=== PATIENT | female | born 1940 | race Caucasian/White ===

== ENCOUNTER 2018-06-25 16:17 | Inpatient (IN) ==
--- NOTE | 2018-06-25 20:41 | Internal Med History&Physical ---
<Jordin Patterson Bo - Last Filed: 06/25/18 23:07> Date of Encounter: 06/25/18 Time of Encounter: 20:43 Internal Medicine - H&P: HPI Chief complaint: Bradycardia Admitted From: Hospital to Hospital Transfer Plans for Post Hospital Care: Home History of present illness: Ms. Dunaway is a 77 year old female with a past medical history of COPD, diabetes mellitus, gastroesophageal reflux disease, hyperlipidemia, hypertension, pulmonary embolism, tobacco use, thoracic aortic aneurysm, hypothyroidism. Within the last couple months when taking her blood pressure at home she has noticed that her heart rate has been in the 40s which is below her normal in the 50s. She brought this to the attention of her [employer] operator who recommended her be fitted with a Holter monitor. She was at [facility] today to be placed with a Holter monitor and to receive a CAT scan to monitor her known thoracic aortic aneurysm when she was found to have a heart rate in the 30s. It was recommended that she be transferred to [facility] to follow-up with cardiology in the morning in anticipation of a possible pacemaker. During the last couple months of new onset bradycardia and today she denies any symptoms including chest pain, shortness of breath, lightheadedness or syncope, fatigue. She states that if she had not have checked she would not have known her heart rate was low. She also denies any other review of systems other than a slight headache. She admits to being a pack per day smoker but denies other contributory social history. Other pertinent medical and surgical history includes regular yearly echocardiogram and anterior cervical decompression and fusion performed last year. Past Med Surg Social Fam HX - Past Medical History Medical history: arthritis, COPD, diabetes, GERD, hyperlipidemia, hypertension, kidney stones, pulmonary embolus, other Additional medical history: DELIA, home 02, thyroid disorder, cataracts, smoker Psychiatric history: no psych history - Past Surgical History Surgical History: cholecystectomy, other Additional surgical history: ganglion cysts, bladder surgery, , T & A, tubal, cataracts - Social History Smoking Status: Current every day smoker Smokeless Tobacco Status: No Alcohol use: none, occasionally Drug use: none - Family History Mother Hx Family Cardiac Disorders: Yes (angina) Father Hx Family Cardiac Disorders: No Internal Medicine - H&P: Meds Atorvastatin [Lipitor] 40 mg PO HS 07/13/16 [History] Bumetanide 2 mg PO DAILY PRN 07/13/16 [History] Fluticasone/Salmeterol [Advair 250-50 Diskus] 1 each IH DAILY 07/13/16 [History] Insulin Lispro Protamin/Lispro [Humalog Mix 75-25 Kwikpen] 105 unit SQ DAILY [History] Metolazone [Zaroxolyn] 5 mg PO DAILY PRN 07/13/16 [History] Nitroglycerin [Nitrostat] 0.4 mg SL Q5M PRN 07/13/16 [History] Allopurinol [Zyloprim 100 MG] 200 mg PO DAILY 09/25/17 [History] Clobetasol Propionate 0.05% [Temovate] 1 appl TP BID 09/25/17 [History] Cyanocobalamin (Vitamin B-12) [Vitamin B12] 1,000 mcg PO DAILY 09/25/17 [History ] Magnesium 250 mg PO DAILY 09/25/17 [History] Ropinirole HCl [Requip] 5 mg PO HS 09/25/17 [History] metFORMIN [Glucophage] 1,000 mg PO BIDWM 09/25/17 [History] OxyCODONE Immed Rel [Roxicodone 5 MG] 5 mg PO Q4HR PRN #30 tablet 09/26/17 [Rx] Donepezil [Aricept] 5 mg PO DAILY 06/25/18 [History] Gabapentin [Neurontin] 300 mg PO HS 06/25/18 [History] HYDROcodone/Acet 5/325 mg [Kenly 5-325 mg] 1 tab PO TID 06/25/18 [History] Levothyroxine [Synthroid] 150 mcg PO DAILY 06/25/18 [History] Lisinopril [Zestril] 10 mg PO DAILY 06/25/18 [History] Omeprazole [PriLOSEC] 40 mg PO DAILY 06/25/18 [History] hydrALAZINE [HydrALAZINE] 25 mg PO BID 06/25/18 [History] 3 Allergy/AdvReac Type Severity Reaction Status Date / Time cephalexin Allergy Rash Verified 06/25/18 14:51 Penicillins Allergy Anaphylaxis Verified 06/25/18 14:51 steroids Allergy red, Uncoded 08/28/17 10:31 swelling - legs All Systems PM: A 10-system review of systems was performed and is negative for pertinent findings except as documented above in the HPI. - Constitutional Constitutional: no chills, no fatigue, no fever(s), no falls, no weakness - EENT Eyes: no blurry vision - Cardiovascular Cardiovascular ROS IM: no chest pain, no diaphoresis, no dyspnea, no dyspnea on exertion, no irregular heart rhythm, no palpitations, no syncope - Respiratory Respiratory: no cough, no dyspnea - Gastrointestinal Gastrointestinal: no abdominal pain, no vomiting - Musculoskeletal Musculoskeletal ROS IM: no numbness, no tingling - Integumentary Integumentary IM: no sores, no unusual bruising - Neurological Neurological ROS: no abnormal speech, no focal weakness - Endocrine Endocrine IM: no excessive sweating, no fatigue - Constitutional Vitals: Temp Pulse Resp BP Pulse Ox 99 F 42 18 147/64 98 06/25/18 18:54 06/25/18 18:54 06/25/18 18:54 06/25/18 18:54 06/25/18 18:54 Exam: Patient in no acute distress, alert and oriented 3 Cranial nerves II through XII intact Heart in a bradycardic rate and regular rhythm, no murmur or gallop auscultated Lungs sounds clear to auscultation bilaterally although course in bilateral lower lung bui Abdomen obese and soft and nontender with normal bowel sounds Bilateral lower extremities 1+ pitting edematous with nonspecific patterns of erythema Skin warm and dry - Assessment and plan (1) Sinus bradycardia Current Visit: Yes Status: Acute Assessment and plan: Patient states her baseline heart rate is in the 50s however in the last couple months she has had heart rates in the 40s Today at [place] she was found to have a heart rate in the 30s and so she was transferred to [facility] She has been asymptomatic over the last couple months and today, denying chest pain or shortness of breath or palpitations or lightheadedness EKG today showed sinus bradycardia with a right bundle branch block and left anterior fascicular block, possible atrial fibrillation The sinus bradycardia is new but both blocks were present on last EKG from 2015 Cardiovascular history includes a myocardial infarction greater than 10 years ago, ascending thoracic aortic aneurysm stable at 4 cm, last echo in December of this year showed ejection fraction of 60% and mild diastolic dysfunction Troponin today was less than 0.03, patient is hemodynamically stable Plan Consult to cardiology for pacemaker discussion Continuous cardiac monitoring NPO after midnight Hold any rate lowering medication Continue to monitor (2) Hyperkalemia Current Visit: Yes Status: Acute Assessment and plan: Patient's last potassium was 5.2 [place] She received 1 dose of Kayexalate before transfer Patient is asymptomatic and hemodynamically stable Repeat BMP in the a.m. 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: with snf use Diabetes mellitus complication status: without complication Qualified Code(s): E11.9 - Type 2 diabetes mellitus without complications; Z79.4 - detention (current) use of insulin (4) Hypertension Current Visit: Yes Status: Chronic Assessment and plan: Patient with history of chronic hypertension, currently stable Resume home medications metolazone, lisinopril, bumetanide Qualifiers: Hypertension type: essential hypertension Qualified Code(s): I10 - Essential (primary) hypertension (5) Hypothyroid Current Visit: Yes Status: Chronic Assessment and plan: Patient with chronic history of hypothyroidism Resume home levothyroxine Qualifiers: Hypothyroidism type: unspecified Qualified Code(s): E03.9 - Hypothyroidism , unspecified (6) COPD (chronic obstructive pulmonary disease) Current Visit: Yes Status: Chronic Assessment and plan: Patient has history of COPD managed on home medications Not currently in exacerbation Resume home medication of Advair Qualifiers: COPD type: unspecified COPD Qualified Code(s): J44.9 - Chronic obstructive pulmonary disease, unspecified (7) Chronic kidney disease Current Visit: Yes Status: Chronic Assessment and plan: Patient's creatinine at admission 1.42, paced on previous labs is pierced to be her baseline Patient is stage III chronic kidney disease based on glomerular filtration rate Currently hemodynamically stable we will continue to monitor Avoid nephrotoxic agents and renally dose medications Qualifiers: Chronic kidney disease stage: stage 3 (moderate) Qualified Code(s): N18.3 - Chronic kidney disease, stage 3 (moderate) (8) DVT prophylaxis Current Visit: Yes Status: Acute Assessment and plan: Subcutaneous heparin 5000 units every 8 hours - Time Spent With Patient Total time spent is greater than 50% in coordination of care (as documented) at patient's floor/unit and/or counseling patient: Rose Marie Santoyo - Last Filed: 06/25/18 23:11> Date of Encounter: 06/25/18 Internal Medicine - H&P: HPI History of present illness: Ms. Dunaway is a 77 year old female All Systems PM: A 10-system review of systems was performed and is negative for pertinent findings except as documented above in the HPI. - Constitutional Vitals: Temp Pulse Resp BP Pulse Ox 99 F 42 18 147/64 98 06/25/18 18:54 06/25/18 18:54 06/25/18 18:54 06/25/18 18:54 06/25/18 18:54 - Assessment and plan (1) Sinus bradycardia Current Visit: Yes Status: Acute (2) Hyperkalemia Current Visit: Yes Status: Acute (3) Diabetes Current Visit: Yes Status: Chronic Qualifiers: Diabetes mellitus type: type 2 Diabetes mellitus snf insulin use: with snf use Diabetes mellitus complication status: without complication Qualified Code(s): E11.9 - Type 2 diabetes mellitus without complications; Z79.4 - medical records manager (current) use of insulin (4) Hypertension Current Visit: Yes Status: Chronic Qualifiers: Hypertension type: essential hypertension Qualified Code(s): I10 - Essential (primary) hypertension (5) Hypothyroid Current Visit: Yes Status: Chronic Qualifiers: Hypothyroidism type: unspecified Qualified Code(s): E03.9 - Hypothyroidism , unspecified (6) COPD (chronic obstructive pulmonary disease) Current Visit: Yes Status: Chronic Qualifiers: COPD type: unspecified COPD Qualified Code(s): J44.9 - Chronic obstructive pulmonary disease, unspecified (7) Chronic kidney disease Current Visit: Yes Status: Chronic Qualifiers: Chronic kidney disease stage: stage 3 (moderate) Qualified Code(s): N18.3 - Chronic kidney disease, stage 3 (moderate) (8) DVT prophylaxis Current Visit: Yes Status: Acute - Time Spent With Patient Total time spent is greater than 50% in coordination of care (as documented) at patient's floor/unit and/or counseling patient: - Attending Attestation Sona Dunaway is a 77 year old woman with a plethora of comorbidities including diabetes and hypertension who are recent is noted to be bradycardic into the 40s over the last 2 months as per her setting that usually her heart rate is in the mid 50s. He states she has gone as low as the high 30s. She saw a [employer] operator who recommended Holter monitoring which was being placed today however given the DIP and her heart rate to the 30s was recommended she be transferred here for further evaluation. My assessment she is sitting comfortably out of bed to chair stating that she has no complaints; she denies chest pain, dyspnea, diaphoresis, headache or lightheadedness/dizziness. She says that she has been completely asymptomatic ever since this started and has no complaints. So states she does not want aggressive interventions done for her as she is currently comfortable as she is right now. Physical exam remarkable for well-developed woman in NAD, no rubs or murmur or gallop rhythm on auscultation, lungs clear on auscultation, right leg circumferentially more edematous than the left but no tenderness on palpation. We shall keep the patient on telemetry monitoring and follow-up with cardiology for consultation in the morning. All her medications were reviewed and to ensure that she is not on any AV dayna blocking agents. Old records reviewed showed that she had a stress test done less than a year ago which was unremarkable and a TTE done in December this year which also was grossly unremarkable.
[2018-06-25] MEDS ORDERED: metOLazone 5 MG TABLET PO PRN (21:17)
[2018-06-25] MEDS ORDERED: NON-FORMULARY MEDICATION 1 EACH EACH (Ropinirole Hcl [Requip] 4 MG) PO PRN (21:17)
[2018-06-25] MEDS ORDERED: Bumetanide 1 MG TABLET PO PRN (21:17)
[2018-06-25] MEDS ORDERED: Nitroglycerin 0.4 MG TAB.SUBL SL PRN (21:17)
[2018-06-25] MEDS ORDERED: Naloxone 0.4 MG/ML INJ IVP PRN (21:22)
[2018-06-25] MEDS ORDERED: D5% in Water 1,000 ML IVC PRN (21:24)
[2018-06-25] MEDS ORDERED: Dextrose Gel 15 GM/37.5 ML TUBE PO PRN ×2 (21:24)
[2018-06-25] MEDS ORDERED: *HR* Dextrose 50 % in Water (Syg) 50 ML SYRINGE IVP PRN (21:24)
[2018-06-25] MEDS ORDERED: rOPINIRole 1 MG TABLET PO SCH (21:30)
[2018-06-25] MEDS: *HR* Heparin 5,000 UNIT/ML VIAL SQ SCH (22:19)
[2018-06-26] MEDS: Acetaminophen 325 MG TABLET PO PRN ×3 (00:06→17:13)
[2018-06-26] MEDS: Insulin LISPRO 300 UNITS/3 ML VIAL SQ SCH ×3 (00:09→16:33)
[2018-06-26 04:59] LABS: Basophils % 0.2 %; Eosinophils # 0.1 K/mcL (0.0-0.6); Eosinophils % 2.8 %; Hematocrit 32.4 % (35.3-44.9); Hemoglobin 9.9 g/dL (11.5-15.4); Immature Granulocytes % 0.2 % (0-4); Lymphocytes % 42.3 %; Mean Corpuscular HGB Conc 30.6 g/dL (31.6-35.5); Mean Corpuscular Hemoglobin 28.4 pg (28.0-33.3); Mean Corpuscular Volume 93.1 fL (83.0-100.0); Mean Platelet Volume 10.2 fL (9.4-12.4); Monocytes # 0.3 K/mcL (0.0-1.3); Monocytes % 6.3 %; Neutrophils # 2.2 K/mcL (1.6-8.9); Platelet Count 137 K/mcL (140-400); Red Blood Count 3.48 M/mcL (3.82-4.97); Red Cell Distribution Width 15.8 % (11.5-14.5); Segmented Neutrophils % 48.2 %
[2018-06-26 05:14] LABS: Calcium 9.1 mg/dL (8.6-10.3); Potassium 5.5 mEq/L (3.5-5.1)
[2018-06-26] MEDS: *HR* Heparin 5,000 UNIT/ML VIAL SQ SCH ×3 (06:36→23:17)
[2018-06-26] MEDS: Budesonide/Formoterol 80/4.5 MDI IH SCH (08:00)
--- NOTE | 2018-06-26 10:27 | Cardiology Consult Note ---
<Kade Martinez Diogenes - Last Filed: 06/26/18 12:07> Date of Encounter: 06/26/18 Time of Encounter: 10:23 Assessment and Plan (1) Bradycardia Current Visit: Yes Status: Acute Asymptomatic. Only knows she has been bradycardic due to seeing HR when she checks BP. Reports historically HR in the 50s, but has recently noticed it in the 30s-40s intermittently. Intermittent junctional rhythm noted. Denies chest pain, dyspnea, dizziness, lightheadedness or fatigue. Not on any AV dayna blockers. K is 5.5---recommend correcting per primary team. Mag and TSH WNL. Pharmacologic nuclear stress test 08/2017 negative for ischemia or infarct. Limited TTE LVEF 55-60%. Normal right ventricular structure and function. Normal left atrial size. Moderately calcified aortic valve leaflets. Moderately calcified mitral valve leaflets. Continue to monitor HR and repeat ECG once potassium is corrected. Avoid AV dayna blockers. If no improvement in HR once K is corrected, will consider EP consult. (2) Hyperkalemia Current Visit: Yes Status: Acute K 5.5---recommend correction per primary team, as could be contributing to bradycardia. Discussion w patient/family: The assessment and plan as outlined above was discussed with the patient and/or family members who expressed understanding and agreement. All questions were answered. Thank you for involving us in the care of your patient. Please call with any questions. I will discuss all the above with Dr. Villegas and make changes as necessary. History of Present Illness Consult date: 06/26/18 Requesting physician: Rose Marie Melissa Consult reason: Bradycardia History of present illness: Ms. Dunaway is a 77 year old female with PMH of COPD, diabetes mellitus, GERD, HLD , HTN pulmonary embolism, tobacco use, thoracic aortic aneurysm, hypothyroidism. Within the last couple months when taking her blood pressure she has noticed that her heart rate has been in the 40s which is below her normal in the 50s. She brought this to the attention of her ob/gyn doctor who recommended a Holter monitor. She was at [facility] yesterday to have her Holter monitor applied and to receive a CT scan to monitor her known thoracic aortic aneurysm when she was found to have a heart rate in the 30s. It was recommended that she be transferred to [facility] for cardiology consult and to be evaluated for possible pacemaker. During the last couple months of new onset bradycardia and today she denies any symptoms. She denies fatigue, chest pain, shortness of breath, lightheadedness or syncope. She states that if she had not have checked she would not have known her heart rate was low. She also denies any other review of systems other than a slight headache. She admits to being a pack per day smoker but denies other contributory social history. HR currently 30s at bedside, appears junctional. K 5.5. Recent TSH WNL. Limited TTE obtained. EF remains preserved. Prior CV testing: TTE 01/06/18: LVEF 60%. Normal LV chamber size, wall thickness and function. Mild left ventricular diastolic dysfunction. Normal right ventricular structure and function. Grossly, mildly calcified aortic valve. The number of leaflets cannot be determined. Mild aortic regurgitation. Mild aortic sclerosis. Mean gradient 11 mmHg. Borderline mild pulmonary hypertension. Estimated RVSP 36 mmHg. Mildly dilated aortic root measuring 3.9 cm. Nuclear stress test 09/04/17: Perfusion imaging negative for ischemia or infarct. Gated EF >70%. Past Med Surg Social Fam HX - Past Medical History Medical history: arthritis, COPD, diabetes, GERD, hyperlipidemia, hypertension, kidney stones, pulmonary embolus, other Additional medical history: DELIA, home 02, thyroid disorder, cataracts, smoker Psychiatric history: no psych history - Past Surgical History Surgical History: cholecystectomy, other Additional surgical history: ganglion cysts, bladder surgery, , T & A, tubal, cataracts - Social History Smoking Status: Current every day smoker Smokeless Tobacco Status: No Alcohol use: none, occasionally Drug use: none - Family History Mother Living Status: Age at : 77 Hx Family Cardiac Disorders: Yes (angina) Hx Family Endocrine Disorder: Yes Father Living Status: Age at : 46 Cause of : acute alcoholism Hx Family Cardiac Disorders: No Medications and Allergies Atorvastatin [Lipitor] 40 mg PO HS 07/13/16 [History] Bumetanide 2 mg PO DAILY PRN 07/13/16 [History] Fluticasone/Salmeterol [Advair 250-50 Diskus] 1 each IH DAILY 07/13/16 [History] Insulin Lispro Protamin/Lispro [Humalog Mix 75-25 Kwikpen] 105 unit SQ DAILY [History] Metolazone [Zaroxolyn] 5 mg PO DAILY PRN 07/13/16 [History] Nitroglycerin [Nitrostat] 0.4 mg SL Q5M PRN 07/13/16 [History] Allopurinol [Zyloprim 100 MG] 200 mg PO DAILY 09/25/17 [History] Clobetasol Propionate 0.05% [Temovate] 1 appl TP BID 09/25/17 [History] Cyanocobalamin (Vitamin B-12) [Vitamin B12] 1,000 mcg PO DAILY 09/25/17 [History ] Magnesium 250 mg PO DAILY 09/25/17 [History] Ropinirole HCl [Requip] 5 mg PO HS 09/25/17 [History] metFORMIN [Glucophage] 1,000 mg PO BIDWM 09/25/17 [History] OxyCODONE Immed Rel [Roxicodone 5 MG] 5 mg PO Q4HR PRN #30 tablet 09/26/17 [Rx] Donepezil [Aricept] 5 mg PO DAILY 06/25/18 [History] Gabapentin [Neurontin] 300 mg PO HS 06/25/18 [History] HYDROcodone/Acet 5/325 mg [[place] 5-325 mg] 1 tab PO TID 06/25/18 [History] Levothyroxine [Synthroid] 150 mcg PO DAILY 06/25/18 [History] Lisinopril [Zestril] 10 mg PO DAILY 06/25/18 [History] Omeprazole [PriLOSEC] 40 mg PO DAILY 06/25/18 [History] hydrALAZINE [HydrALAZINE] 25 mg PO BID 06/25/18 [History] 3 Allergy/AdvReac Type Severity Reaction Status Date / Time cephalexin Allergy Rash Verified 06/25/18 14:51 Penicillins Allergy Anaphylaxis Verified 06/25/18 14:51 steroids Allergy red, Uncoded 08/28/17 10:31 swelling - legs All Systems Review: The remainder of the systems were reviewed and are negative - Cardiovascular Cardiovascular: as per HPI Physical Examination Vital Signs, Last 4 Hours Temp Pulse Resp BP Pulse Ox 06/26/18 06:59 98.0 F 40 18 155/48 96 Vital Signs Temp Pulse Resp BP Pulse Ox 06/26/18 06:59 98.0 F 40 18 155/48 96 06/26/18 05:14 97.7 F 41 18 173/54 97 06/25/18 23:45 97.4 F L 40 18 134/51 95 06/25/18 18:54 99 F 42 18 147/64 98 Intake and Output 06/25/18 06/26/18 06/26/18 23:59 07:59 15:59 Intake Total 100 / 100 0 / 0 Output Total 200 / 200 Balance -100 / -100 0 / 0 Intake: Oral 100 / 100 0 / 0 Output: Urine 200 / 200 Other: # Voids 0 0 Weight 111.5 kg Blood Glucose* 168 187 154 Vital Signs Temp Pulse Resp BP Pulse Ox 06/26/18 11:33 98.3 F 41 18 155/85 96 06/26/18 06:59 98.0 F 40 18 155/48 96 06/26/18 05:14 97.7 F 41 18 173/54 97 06/25/18 23:45 97.4 F L 40 18 134/51 95 06/25/18 18:54 99 F 42 18 147/64 98 Intake and Output 06/25/18 06/26/18 06/26/18 23:59 07:59 15:59 Intake Total 100 / 100 0 / 0 Output Total 200 / 200 Balance -100 / -100 0 / 0 Intake: Oral 100 / 100 0 / 0 Output: Urine 200 / 200 Other: # Voids 0 0 Weight 111.5 kg Blood Glucose* 168 187 146 General: Conversant, No Apparent Distress HEENT: Atraumatic, Normocephaly, Mucus Membranes Moist Neck: No JVD, Normal carotid pulses Cardiac: Other (irregular) Lungs: Other (diminished) Neuro: Alert and responsive, No focal deficits noted Abdomen: Soft, Non-Tender Skin: No rashes noted on visualized skin Musculoskeletal: No Chest Wall Tenderness Extremities: No Clubbing, No Cyanosis, Other (mild LE edema) Results 06/26/18 04:01 06/26/18 04:01 Lab Results 06/26/18 06/26/18 04:01 04:01 WBC 4.6 Hgb 9.9 L Hct 32.4 L Plt Count 137 L Sodium 135 L Potassium 5.5 H Chloride 109 H Carbon Dioxide 21 L BUN 27 H Creatinine 1.48 H Glucose 181 H Calcium 9.1 Short CBC 06/26/18 Range/Units 04:01 WBC 4.6 (4.3-11.1) K/mcL Hgb 9.9 L (11.5-15.4) g/dL Hct 32.4 L (35.3-44.9) % Plt Count 137 L (140-400) K/mcL Neutrophils # 2.2 (1.6-8.9) K/mcL BMP 06/26/18 Range/Units 04:01 Sodium 135 L (136-145) mEq/L Potassium 5.5 H (3.5-5.1) mEq/L Chloride 109 H (98-107) mEq/L Carbon Dioxide 21 L (23-29) mEq/L BUN 27 H (8-23) mg/dL Creatinine 1.48 H (0.60-1.20) mg/dL Glucose 181 H (70-105) mg/dL Calcium 9.1 (8.6-10.3) mg/dL Impressions Echocardiogram Limited Views 06/26/18 10:22 Impressions: LVEF 55-60%. Normal right ventricular structure and function. Normal left atrial size. Moderately calcified aortic valve leaflets. Moderately calcified mitral valve leaflets. Left Ventricular Wall Motion: Rest Echo Findings All wall segments showed normal motion. Findings: Study Quality * Limited exam to evaluate LV function. ECG Findings * Sinus bradycardia. Left Ventricle * LVEF 55-60%. Right Ventricle * Normal right ventricular structure and function. Left Atrium * Normal left atrial size. Right Atrium * Normal right atrial size. Interatrial Septum * No evidence of PFO by color Doppler. Aortic Valve * Moderately calcified aortic valve leaflets. * Aortic valve not well visualized. * Aortic leaflets not well visualized Mitral Valve * Moderately calcified mitral valve leaflets. * Mildly thickened mitral valve leaflets. Tricuspid Valve * Normal tricuspid valve structure. Pericardium * The pericardium appears normal. IVC * Normal IVC dimensions and inspiratory collapse. Pulmonary Artery * Normal visualized portions of the main pulmonary artery. Active Medications Acetaminophen (Tylenol) 650 mg PO Q6HR PRN PRN Reason: Mild Pain/Fever Stop: 12/25/18 21:23 Last Admin: 06/26/18 00:06 Dose: 650 mg Allopurinol (Zyloprim) 200 mg PO DAILY [facility] Stop: 12/26/18 09:01 Last Admin: 06/26/18 11:34 Dose: Not Given Atorvastatin Calcium (Lipitor) 40 mg PO DAILY [facility] Stop: 12/26/18 11:16 Budesonide/Formoterol Fumarate (Symbicort) 2 puff IH DAILYR [facility] Stop: 12/26/18 10:01 Last Admin: 06/26/18 08:00 Dose: Not Given Clobetasol Propionate (Temovate 0.05%) 1 appl TP BID [facility] Stop: 12/26/18 09:01 Last Admin: 06/26/18 11:34 Dose: Not Given Dextrose/Water (Dextrose 50% (Syg)) 25 ml IVP AD PRN PRN Reason: Hypoglycemia Stop: 12/25/18 21:25 Glucagon (Glucagen) 1 mg IM ONCE PRN PRN Reason: Hypoglycemia Stop: 12/25/18 21:25 Glucose (Gluctose) 15 gm PO ONCE PRN PRN Reason: Hypoglycemia Stop: 12/25/18 21:25 Glucose (Gluctose) 30 gm PO ONCE PRN PRN Reason: Hypoglycemia Stop: 12/25/18 21:25 Heparin Sodium (Porcine) (Heparin) 5,000 unit SQ Q8HCO [facility] Stop: 12/25/18 22:01 Last Admin: 06/26/18 06:36 Dose: Not Given Dextrose (Dextrose 5%) 1,000 mls @ 100 mls/hr IVC .Q10H PRN PRN Reason: HYPOGLYCEMIA Stop: 12/25/18 21:25 Insulin Human Lispro (Humalog) 0 units SQ Q6HR [facility] PRN Reason: Protocol Stop: 12/26/18 00:01 Last Admin: 06/26/18 06:35 Dose: 4 units Levothyroxine Sodium (Synthroid) 125 mcg PO 0630 [facility] Stop: 12/26/18 06:31 Last Admin: 06/26/18 06:34 Dose: 125 mcg Lisinopril (Zestril) 2.5 mg PO DAILY [facility] Stop: 12/26/18 09:01 Last Admin: 06/26/18 11:34 Dose: Not Given Omeprazole (Prilosec) 40 mg PO Q48H [facility] Stop: 12/25/18 21:31 Last Admin: 06/25/18 22:17 Dose: 40 mg Ropinirole HCl (Requip) 5 mg PO HS [facility] Stop: 12/25/18 21:31 Last Admin: 06/25/18 22:18 Dose: 5 mg - Imaging and Cardiology Stress Test: report reviewed Echo: report reviewed - EKG Interpretation EKG results cardiology: personally reviewed (Junctional, HR 37), other (12 hr tele AVG HR 46, sinus sreedhar and intermittent junctional rhythm) Consult Discharge Plan - Plan Referrals: Marlene Mcneil MD [Non-Partnered Physician] - <Yg Villegas - Last Filed: 06/26/18 16:53> Date of Encounter: 06/26/18 - Attending Attestation Patient was seen and evaluated independently by me. Findings, assessment and plan were discussed at length with patient, questions answered. Agree with nurse practitioner's documentation. Addition as follows, 77 yoCF ho baseline S sreedhar 50s, CKD, HTN, DM, COPD. Found in S sreedhar 30s before Holter fitting. Asymptomatic from CV stand of point. VSS, CTA, no M/G/R, 1+ B/L LE edema. ECG-Tele: sinus sreedhar 40s+/- K 5s with Cr close to baseline. Resumed lisinopril months ago with uptitration several wks ago. No evidence of RTA or rhabdo or other causes of hyperkalemia. A: Profound asymptomatic sinus bradycardia, hyperkalemia P: - correct hyperkalemia then repeat ECG - d/c lisinopril, start amlodipine - if HR improves with K correction and no pause or AVB on tele, f/u cardiology clinic. Yg Villegas MD, PhD Assessment and Plan Discussion w patient/family: The assessment and plan as outlined above was discussed with the patient and/or family members who expressed understanding and agreement. All questions were answered. Thank you for involving us in the care of your patient. Please call with any questions. History of Present Illness History of present illness: Ms. Dunaway is a 77 year old female All Systems Review: The remainder of the systems were reviewed and are negative Physical Examination Vital Signs, Last 4 Hours Temp Pulse Resp BP Pulse Ox 06/26/18 15:43 98.4 F 46 17 139/49 97 Results 06/26/18 04:01 06/26/18 11:15 Lab Results 06/26/18 06/26/18 06/26/18 04:01 04:01 11:15 WBC 4.6 Hgb 9.9 L Hct 32.4 L Plt Count 137 L Sodium 135 L 139 Potassium 5.5 H 5.5 H Chloride 109 H 110 H Carbon Dioxide 21 L 22 L BUN 27 H Creatinine 1.48 H Glucose 181 H Calcium 9.1 Magnesium 1.7
[2018-06-26] MEDS: CLOBETASOL PROPIONATE 15 GM TUBE TP SCH ×2 (11:34→23:17)
[2018-06-26 12:31] LABS: Magnesium 1.7 mg/dL (1.6-2.6); Potassium 5.5 mEq/L (3.5-5.1)
[2018-06-26] MEDS ORDERED: Insulin Human Regular 10 UNIT in 0.9 % Sodium Chloride 10 ML IV ONE (14:05)
[2018-06-26] MEDS ORDERED: *HR* Dextrose 50 % in Water (Syg) 50 ML SYRINGE IVP ONE (14:06)
[2018-06-26] MEDS ORDERED: amLODIPine 5 MG TABLET PO SCH (18:00)
[2018-06-26] MEDS ORDERED: rOPINIRole 1 MG TABLET PO SCH (18:00)
[2018-06-26] MEDS ORDERED: Insulin LISPRO 300 UNITS/3 ML VIAL SQ SCH (22:00)
--- NOTE | 2018-06-26 22:03 | Internal Med Progress Note ---
Hospitalist Progress Note - Encounter Date of Encounter: 06/26/18 Time of Encounter: 11:00 - Subjective Interval History: SUBJECTIVE: The patient feels good. Denies chest pain. Denies difficulty breathing. Denies dizziness/lightheadedness; resting and walking. OBJECTIVE: Skin: Free of rash and discoloration. ENMT: Oral/pharyngeal mucosa is normal in appearance. Eyes: Sclera is white. There is no discharge from eyes. Respiratory: Normal breath sounds; no crackles or wheezes. CV: Heart is regular; no gallop or murmur. GI: Abdomen is soft and not tender. There is no palpable mass or visceromegaly. Neuro: There is no focal deficits. Her potassium from today was 5.5 and 5.5. Creatinine is 1.48 with a GFR of 34. Sodium is 139. Magnesium is 1.7. Echocardiogram shows normal findings. Telemetry shows sinus bradycardia with occasionally seen junctional rhythm. Her heart rate is about 42. ASSESSMENT AND PLAN: Sinus bradycardia. Asymptomatic. We will try to correct her mild hyperkalemia. She got the 50% glucose and IV insulin. We will repeat her BMP in the morning. We appreciate help from cardiology. Type 2 diabetes mellitus. Seems to be under control. She was on metformin at home. Currently she gets when necessary Humalog. Hypertensive renal disease with CKD 3. She is on lisinopril. Hypothyroidism. Clinically under control. We will continue Synthroid. COPD. Under control. She is on Symbicort. - Exam Vitals: Temp Pulse Resp BP Pulse Ox 98.3 F 43 18 149/58 94 06/26/18 20:40 06/26/18 20:40 06/26/18 20:40 06/26/18 20:40 06/26/18 20:40 Exam: xx - Assessment and Plan (1) Sinus bradycardia Current Visit: Yes Status: Inactive (2) Hyperkalemia Current Visit: Yes Status: Inactive (3) Diabetes Current Visit: Yes Status: Chronic (4) Hypertension with renal disease Current Visit: Yes Status: Acute (5) Hypothyroid Current Visit: Yes Status: Chronic (6) COPD (chronic obstructive pulmonary disease) Current Visit: Yes Status: Chronic - Time Spent with Patient Total time spent is greater than 50% in coordination of care (as documented) at patient's floor/unit and/or counseling patient: Internal Medicine: Result - Labs CBC & Chem 7: 06/26/18 04:01 06/26/18 11:15 Labs: Short CBC 06/26/18 Range/Units 04:01 WBC 4.6 (4.3-11.1) K/mcL Hgb 9.9 L (11.5-15.4) g/dL Hct 32.4 L (35.3-44.9) % Plt Count 137 L (140-400) K/mcL Neutrophils # 2.2 (1.6-8.9) K/mcL BMP 06/26/18 06/26/18 04:01 11:15 Sodium 135 L 139 Potassium 5.5 H 5.5 H Chloride 109 H 110 H Carbon Dioxide 21 L 22 L BUN 27 H Creatinine 1.48 H Glucose 181 H Calcium 9.1 - Impressions Impressions Echocardiogram Limited Views 06/26/18 10:22 Impressions: LVEF 55-60%. Normal right ventricular structure and function. Normal left atrial size. Moderately calcified aortic valve leaflets. Moderately calcified mitral valve leaflets. Left Ventricular Wall Motion: Rest Echo Findings All wall segments showed normal motion. Findings: Study Quality * Limited exam to evaluate LV function. ECG Findings * Sinus bradycardia. Left Ventricle * LVEF 55-60%. Right Ventricle * Normal right ventricular structure and function. Left Atrium * Normal left atrial size. Right Atrium * Normal right atrial size. Interatrial Septum * No evidence of PFO by color Doppler. Aortic Valve * Moderately calcified aortic valve leaflets. * Aortic valve not well visualized. * Aortic leaflets not well visualized Mitral Valve * Moderately calcified mitral valve leaflets. * Mildly thickened mitral valve leaflets. Tricuspid Valve * Normal tricuspid valve structure. Pericardium * The pericardium appears normal. IVC * Normal IVC dimensions and inspiratory collapse. Pulmonary Artery * Normal visualized portions of the main pulmonary artery. Consult Discharge Plan - Plan Referrals: Marlene Mcneil MD [Non-Partnered Physician] - (3) Diabetes Qualifiers: Diabetes mellitus type: type 2 Diabetes mellitus buttermaker continuous churn insulin use: with custodial use Diabetes mellitus complication status: without complication Qualified Code(s): E11.9 - Type 2 diabetes mellitus without complications; Z79.4 - FDC (current) use of insulin (5) Hypothyroid Qualifiers: Hypothyroidism type: unspecified Qualified Code(s): E03.9 - Hypothyroidism, unspecified (6) COPD (chronic obstructive pulmonary disease) Qualifiers: COPD type: unspecified COPD Qualified Code(s): J44.9 - Chronic obstructive pulmonary disease, unspecified
[2018-06-27] MEDS: Acetaminophen 325 MG TABLET PO PRN ×2 (01:21→06:29)
[2018-06-27 05:08] LABS: Calcium 8.8 mg/dL (8.6-10.3); Potassium 5.4 mEq/L (3.5-5.1)
[2018-06-27] MEDS: *HR* Heparin 5,000 UNIT/ML VIAL SQ SCH (05:18)
[2018-06-27 06:51] VITALS: BP 154/56
[2018-06-27] MEDS ORDERED: Insulin LISPRO 300 UNITS/3 ML VIAL SQ SCH (07:30)
[2018-06-27] MEDS: Budesonide/Formoterol 80/4.5 MDI IH SCH (08:10)
[2018-06-27] MEDS: Nystatin Cream 15 GM TUBE TP SCH (08:51)
[2018-06-27] MEDS: CLOBETASOL PROPIONATE 15 GM TUBE TP SCH (08:51)
--- NOTE | 2018-06-27 10:56 | Cardiology Progress Note ---
Date of Encounter: 06/27/18 Time of Encounter: 10:54 Assessment and Plan (1) Bradycardia Current Visit: Yes Status: Acute Asymptomatic. Only knows she has been bradycardic due to seeing HR when she checks BP. Intermittent junctional rhythm noted. Denies chest pain, dyspnea, dizziness, lightheadedness or fatigue. Not on any AV dayna blockers. K is 5.4---recommend correcting per primary team. Mag and TSH WNL. Pharmacologic nuclear stress test 08/2017 negative for ischemia or infarct. Limited TTE LVEF 55-60%. Normal right ventricular structure and function. Normal left atrial size. Moderately calcified AV leaflets. Moderately calcified MV leaflets. Pt refuses PPM, refuses to stay at the hospital any longer. Risks discussed. She verbalizes understanding. Will sign off. Please reconsult PRN. Will coordinate close outpt follow-up with Dr. Kan. Will order 48 holter monitor to be applied at d/c. (2) Hyperkalemia Current Visit: Yes Status: Acute K 5.4---recommend correction per primary team, as could be contributing to bradycardia. (3) Junctional rhythm Current Visit: Yes Status: Acute Intermittent junctional rhythm noted. Plan as above. Discussion w patient/family: The assessment and plan as outlined above was discussed with the patient and/or family members who expressed understanding and agreement. All questions were answered. Thank you for involving us in the care of your patient. Please call with any questions. I will discuss all the above with Dr. Villegas and make changes as necessary. Subjective Principal diagnosis: bradycardia, junctional rhythm Interval history: Pt remains bradycardic with intermittent junctional rhythm. Continues to deny and symptoms, refuses PPM or to stay any longer. TTE resulted--EF preserved. Moderately calcified aortic and mitral valve leaflets. 12 hr tele AVG HR 43, longest pause 2.7 seconds. Objective Vital Signs Temp Pulse Resp BP Pulse Ox 06/27/18 06:48 98.0 F 48 15 154/56 98 06/27/18 00:40 98.0 F 44 18 155/54 96 06/26/18 22:58 94 06/26/18 20:40 98.3 F 43 18 149/58 94 06/26/18 15:43 98.4 F 46 17 139/49 97 06/26/18 11:33 98.3 F 41 18 155/85 96 Intake and Output 06/26/18 06/27/18 06/27/18 23:59 07:59 15:59 Intake Total 240 / 240 240 / 240 480 / 480 Output Total 0 / 0 Balance 240 / 240 240 / 240 480 / 480 Intake: Oral 240 / 240 240 / 240 480 / 480 Output: Urine 0 / 0 Other: Meal Dinner Breakfast Percent of Meal Consumed 100% # Voids 1 0 Weight 112.5 kg Blood Glucose* 218 232 Patient Weight 06/27/18 23:59 Weight 112.5 kg General: Conversant, No Apparent Distress HEENT: Atraumatic, Normocephaly, Mucus Membranes Moist Neck: No JVD, Normal carotid pulses Cardiac: Reg Rate and Rhythm, Normal S1 and S2, No Murmur Lungs: Normal Breath Sounds, No Wheeze, Rales, Rhonchi Neuro: Alert and responsive, No focal deficits noted Abdomen: Soft, Non-Tender Skin: No rashes noted on visualized skin Musculoskeletal: No Chest Wall Tenderness Extremities: No Clubbing, No Cyanosis, No Edema, Normal Pulses Results 06/26/18 04:01 06/27/18 04:37 Lab Results 06/26/18 06/27/18 11:15 04:37 Sodium 139 135 L Potassium 5.5 H 5.4 H Chloride 110 H 108 H Carbon Dioxide 22 L 22 L BUN 30 H Creatinine 1.40 H Glucose 227 H Calcium 8.8 Magnesium 1.7 [facility] 06/27/18 06/26/18 Range/Units 04:37 11:15 Sodium 135 L 139 (136-145) mEq/L Potassium 5.4 H 5.5 H (3.5-5.1) mEq/L Chloride 108 H 110 H (98-107) mEq/L Carbon Dioxide 22 L 22 L (23-29) mEq/L BUN 30 H (8-23) mg/dL Creatinine 1.40 H (0.60-1.20) mg/dL Glucose 227 H (70-105) mg/dL Calcium 8.8 (8.6-10.3) mg/dL Impressions Echocardiogram Limited Views 06/26/18 10:22 Impressions: LVEF 55-60%. Normal right ventricular structure and function. Normal left atrial size. Moderately calcified aortic valve leaflets. Moderately calcified mitral valve leaflets. Left Ventricular Wall Motion: Rest Echo Findings All wall segments showed normal motion. Findings: Study Quality * Limited exam to evaluate LV function. ECG Findings * Sinus bradycardia. Left Ventricle * LVEF 55-60%. Right Ventricle * Normal right ventricular structure and function. Left Atrium * Normal left atrial size. Right Atrium * Normal right atrial size. Interatrial Septum * No evidence of PFO by color Doppler. Aortic Valve * Moderately calcified aortic valve leaflets. * Aortic valve not well visualized. * Aortic leaflets not well visualized Mitral Valve * Moderately calcified mitral valve leaflets. * Mildly thickened mitral valve leaflets. Tricuspid Valve * Normal tricuspid valve structure. Pericardium * The pericardium appears normal. IVC * Normal IVC dimensions and inspiratory collapse. Pulmonary Artery * Normal visualized portions of the main pulmonary artery. Active Medications Acetaminophen (Tylenol) 650 mg PO Q6HR PRN PRN Reason: Mild Pain/Fever Stop: 12/25/18 21:23 Last Admin: 06/27/18 06:29 Dose: 650 mg Allopurinol (Zyloprim) 200 mg PO QPM [facility] Stop: 12/26/18 18:01 Last Admin: 06/26/18 17:08 Dose: 200 mg Amlodipine Besylate (Norvasc) 5 mg PO QPM [facility] PRN Reason: Protocol Stop: 12/26/18 18:01 Last Admin: 06/26/18 17:09 Dose: Not Given Atorvastatin Calcium (Lipitor) 40 mg PO DAILY [facility] Stop: 12/26/18 11:16 Last Admin: 06/27/18 08:51 Dose: 40 mg Budesonide/Formoterol Fumarate (Symbicort) 2 puff IH DAILYR [facility] Stop: 12/26/18 10:01 Last Admin: 06/27/18 08:10 Dose: Not Given Clobetasol Propionate (Temovate 0.05%) 1 appl TP BID [facility] Stop: 12/26/18 09:01 Last Admin: 06/26/18 23:17 Dose: Not Given Dextrose/Water (Dextrose 50% (Syg)) 25 ml IVP AD PRN PRN Reason: Hypoglycemia Stop: 12/25/18 21:25 Glucagon (Glucagen) 1 mg IM ONCE PRN PRN Reason: Hypoglycemia Stop: 12/25/18 21:25 Glucose (Gluctose) 15 gm PO ONCE PRN PRN Reason: Hypoglycemia Stop: 12/25/18 21:25 Glucose (Gluctose) 30 gm PO ONCE PRN PRN Reason: Hypoglycemia Stop: 12/25/18 21:25 Heparin Sodium (Porcine) (Heparin) 5,000 unit SQ Q8HCO [facility] Stop: 12/25/18 22:01 Last Admin: 06/27/18 05:18 Dose: Not Given Dextrose (Dextrose 5%) 1,000 mls @ 100 mls/hr IVC .Q10H PRN PRN Reason: HYPOGLYCEMIA Stop: 12/25/18 21:25 Insulin Human Lispro (Humalog) 0 units SQ TIDAC [facility] PRN Reason: Protocol Stop: 12/27/18 07:31 Last Admin: 06/27/18 08:51 Dose: 8 units Insulin Human Lispro (Humalog) 0 units SQ HS [facility] PRN Reason: Protocol Stop: 12/26/18 22:01 Last Admin: 06/26/18 22:36 Dose: 3 units Levothyroxine Sodium (Synthroid) 150 mcg PO 1800 [facility] Stop: 12/27/18 18:01 Nystatin (Mycostatin Cream) 1 appl TP BID [facility] Stop: 12/27/18 09:01 Omeprazole (Prilosec) 40 mg PO 1730 [facility] Stop: 12/26/18 17:31 Last Admin: 06/26/18 17:44 Dose: Not Given Ropinirole HCl (Requip) 5 mg PO 1800 [facility] Stop: 12/25/18 21:31 Last Admin: 06/26/18 17:08 Dose: 5 mg - Imaging and Cardiology Echo: report reviewed - EKG Interpretation EKG results cardiology: other (12 hr tele AVG HR 43, intermittent junctional rhythm) Consult Discharge Plan - Plan Referrals: Yuriy Knapp, [employer] MANAGER [Advanced Practice Nurse] - 07/04/18 9:00 am
--- NOTE | 2018-06-27 11:19 | Discharge Summary ---
- NOTES TO OUTPATIENT PROVIDER Notes to Outpatient Provider: NEEDS ECG AND BMP/MG DONE AT THE NEXT VISIT TO PCP. THE PT REFUSED PACER. I SUBSTITUTED LISINOPRIL WITH amlodipine ( INCREASED POTASSIUM) Orders not resulted at time of discharge: Pending orders 06/26/18 10:22 EKG [ECG 12 lead ECG] [ECG] Stat 06/27/18 06:00 ECG 12 lead ECG [ECG] AM 0600 06/27/18 11:01 ECG 48 holter monitor setup [ECG] Routine Date of Encounter: 06/27/18 Time of Encounter: 11:15 - Discharge Diagnosis (1) Sinus bradycardia Priority: Primary Status: Inactive (2) Hyperkalemia Priority: Primary Status: Inactive (3) Diabetes Priority: Secondary Status: Chronic Qualifiers: Diabetes mellitus type: type 2 Diabetes mellitus shelter insulin use: with rat exterminator use Diabetes mellitus complication status: without complication Qualified Code(s): E11.9 - Type 2 diabetes mellitus without complications; Z79.4 - terminal computer operator (current) use of insulin (4) Hypertension with renal disease Priority: Secondary Status: Chronic (5) Hypothyroid Priority: Secondary Status: Chronic Qualifiers: Hypothyroidism type: unspecified Qualified Code(s): E03.9 - Hypothyroidism , unspecified (6) COPD (chronic obstructive pulmonary disease) Priority: Secondary Status: Chronic Qualifiers: COPD type: unspecified COPD Qualified Code(s): J44.9 - Chronic obstructive pulmonary disease, unspecified Hospital course: HOSPITAL COURSE: This patient was found to have severe bradycardia - at low 30s, when she was fitted for a Holter monitor. Previously she had heart rate at 40-50. The patient did not have any symptoms preceding this admission. We consulted cardiology. Her cardiac rehabilitation program director was showing severe sinus bradycardia/ junctional rhythm. The patient did not agree for any considerations for her pacemaker. We found her to have mild hyperkalemia - initially 5.5; 5.4 today. She has also mildly increased creatinine. This is likely due to lisinopril. I stopped this medication. She will continue hydralazine. I put her on amlodipine. The patient did agree to wait in the hospital to get her potassium down. In this situation I discharged her home. CONDITION AT DISCHARGE: She feels good. She does not have any symptoms at resting/walking. Skin: Free of rash and discoloration. Respiratory: Normal breath sounds with no crackles and wheezes bilaterally. CV: Heart is regular with no gallop or murmur. Her heart rate is about 40/min average. GI: Abdomen is flat and soft with no palpable mass or visceromegaly. Neuro exam: There is no focal deficits. Normal speech, swallowing and gait. SEE DISCHARGE ORDERS/MEDICATIONS.. Discharge discussed with: patient, nurse - Time Spent with Patient Total time spent providing and/or coordinating discharge services: Greater than 30 minutes (40 minutes) - Discharge Medications Prescriptions: amLODIPine [Norvasc] 5 mg PO QPM #30 tablet hydrALAZINE [HydrALAZINE] 25 mg PO BID #60 tablet Nystatin Cream [Mycostatin Cream] 1 appl TP BID #1 tube Home Medications: Atorvastatin [Lipitor] 40 mg PO HS 07/13/16 [History] Bumetanide 2 mg PO DAILY PRN 07/13/16 [History] Fluticasone/Salmeterol [Advair 250-50 Diskus] 1 each IH DAILY 07/13/16 [History] Insulin Lispro Protamin/Lispro [Humalog Mix 75-25 Kwikpen] 105 unit SQ DAILY [History] Metolazone [Zaroxolyn] 5 mg PO DAILY PRN 07/13/16 [History] Nitroglycerin [Nitrostat] 0.4 mg SL Q5M PRN 07/13/16 [History] Allopurinol [Zyloprim 100 MG] 200 mg PO DAILY 09/25/17 [History] Clobetasol Propionate 0.05% [Temovate] 1 appl TP BID 09/25/17 [History] Cyanocobalamin (Vitamin B-12) [Vitamin B12] 1,000 mcg PO DAILY 09/25/17 [History ] Magnesium 250 mg PO DAILY 09/25/17 [History] Ropinirole HCl [Requip] 5 mg PO HS 09/25/17 [History] metFORMIN [Glucophage] 1,000 mg PO BIDWM 09/25/17 [History] Donepezil [Aricept] 5 mg PO DAILY 06/25/18 [History] Gabapentin [Neurontin] 300 mg PO HS 06/25/18 [History] HYDROcodone/Acet 5/325 mg [[place] 5-325 mg] 0.5 tab PO TID PRN 06/25/18 [History] Levothyroxine [Synthroid] 150 mcg PO DAILY 06/25/18 [History] Omeprazole [PriLOSEC] 40 mg PO DAILY 06/25/18 [History] Nystatin Cream [Mycostatin Cream] 1 appl TP BID #1 tube 06/27/18 [Rx] amLODIPine [Norvasc] 5 mg PO QPM #30 tablet 06/27/18 [Rx] hydrALAZINE [HydrALAZINE] 25 mg PO BID #60 06/27/18 [Rx] hydrALAZINE [HydrALAZINE] 25 mg PO BID #60 tablet 06/27/18 [Rx] Allergies/Adverse Reactions: 3 Allergy/AdvReac Type Severity Reaction Status Date / Time cephalexin Allergy Rash Verified 06/25/18 14:51 Penicillins Allergy Anaphylaxis Verified 06/25/18 14:51 steroids Allergy red, Uncoded 08/28/17 10:31 swelling - legs Date of admission: 06/26/18 15:29 Primary care physician: PCP NONE Consults: 06/25/18 21:42 Consult to Cardiology [CONS] Routine Comment: Consulting Provider: Cardiology Edwards Reason for Consult: Bradycardia Call Completed: No Discharging clinician: Levar Méndez Anticipated date of discharge: 06/27/18 - Constitutional Vitals: Temp Pulse Resp BP Pulse Ox 98.0 F 48 15 154/56 98 06/27/18 06:48 06/27/18 06:48 06/27/18 06:48 06/27/18 06:48 06/27/18 06:48 General appearance: Present: A&O X 3, no acute distress, answers questions appropriately Exam: xx - Patient Status Disposition: Home, Self-Care Condition: Fair Functional capacity at discharge: independent ambulation Overall status at discharge: patient is not back to baseline - Discharge Instructions Instructions: Amlodipine (By mouth), Bradycardia (GEN) Follow Up With: Yuriy Knapp, RESIDENTIAL PROGRAM WORKER [Advanced Practice Nurse] - 07/04/18 9:00 am - Diet and Activity Activity: resume usual activities as tolerated Diet: diabetic diet - VTE Deep Vein Thrombosis/Pulmonary Embolism Present on Admission: No
== END 2018-06-27 14:55 | disposition home or self-care (01) | DRG 309 ==
LOC: 2NENU 18:37 → SUATTDRO 18:37 → INTOOBSV 18:37
PROVIDERS: ADMIT Internal Medicine; ATTEND Internal Medicine

== ENCOUNTER 2019-09-09 11:00 | Inpatient (IN) ==
[2019-09-09 12:18] LABS: Basophils % 0.2 %; Eosinophils # 0.1 K/mcL (0.0-0.6); Eosinophils % 1.1 %; Hematocrit 33.6 % (35.3-44.9); Hemoglobin 10.5 g/dL (11.5-15.4); Immature Granulocytes % 0.6 % (0-4); Lymphocytes % 17.9 %; Mean Corpuscular HGB Conc 31.3 g/dL (31.6-35.5); Mean Corpuscular Hemoglobin 27.3 pg (28.0-33.3); Mean Corpuscular Volume 87.5 fL (83.0-100.0); Mean Platelet Volume 10.7 fL (9.4-12.4); Monocytes # 0.4 K/mcL (0.0-1.3); Monocytes % 6.6 %; Neutrophils # 3.9 K/mcL (1.6-8.9); Platelet Count 137 K/mcL (140-400); Red Blood Count 3.84 M/mcL (3.82-4.97); Red Cell Distribution Width 17.1 % (11.5-14.5); Segmented Neutrophils % 73.6 %; White Blood Count 5.3 K/mcL (4.3-11.1)
[2019-09-09 12:44] LABS: Calcium 9.6 mg/dL (8.6-10.3); Troponin I 0.03 ng/mL (< 0.04)
[2019-09-09 12:59] LABS: Thyroid Stimulating Hormone 2.392 mcIU/mL (0.340-5.600)
[2019-09-09] MEDS ORDERED: Calcium Gluconate 1gm/50mL IVPB STA (13:18)
[2019-09-09] MEDS ORDERED: *HR* Dextrose 50 % in Water (Syg) 50 ML SYRINGE IVP ONE (13:18)
[2019-09-09] MEDS ORDERED: 0.9 % Sodium Chloride 500 ML IVC ONE (13:18)
[2019-09-09] MEDS ORDERED: Insulin Human Regular 10 UNIT in 0.9 % Sodium Chloride 10 ML IV STA (13:21)
[2019-09-09] MEDS ORDERED: *HR* Dextrose 50 % in Water (Syg) 50 ML SYRINGE ONE (13:32)
[2019-09-09] MEDS ORDERED: *HR* HYDROcodone/Acet 5/325 mg TABLET PO PRN (14:05)
[2019-09-09] MEDS ORDERED: Naloxone 0.4 MG/ML INJ IVP PRN (14:05)
[2019-09-09] MEDS ORDERED: Nitroglycerin 0.4 MG TAB.SUBL SL PRN (14:10)
[2019-09-09] MEDS ORDERED: *HR* Dextrose 50 % in Water (Syg) 50 ML SYRINGE IVP PRN (14:11)
[2019-09-09] MEDS ORDERED: Dextrose Gel 15 GM/37.5 ML TUBE PO PRN ×2 (14:11)
[2019-09-09] MEDS ORDERED: D5% in Water 1,000 ML IVC PRN (14:11)
[2019-09-09] MEDS ORDERED: 0.9 % Sodium Chloride 500 ML IVC SCH (14:15)
[2019-09-09 14:52] LABS: Albumin 3.4 g/dL (3.5-5.7); Albumin/Globulin Ratio 1.2 (1.1-2.2); Bilirubin,Total 0.3 mg/dL (0.3-1.0); Calcium 9.2 mg/dL (8.6-10.3); Globulin 2.9 g/dL (2.4-3.5); Potassium 5.5 mEq/L (3.5-5.1); Total Protein 6.3 g/dL (6.4-8.9)
[2019-09-09] MEDS ORDERED: Azithromycin 500 MG in 0.9 % Sodium Chloride 250 ML IVPB SCH (16:22)
[2019-09-09] MEDS: Insulin LISPRO 300 UNITS/3 ML VIAL SQ SCH (17:38)
[2019-09-09] MEDS: Bumetanide 1 MG/4 ML VIAL IVP SCH (17:38)
[2019-09-09] MEDS: rOPINIRole 1 MG TABLET PO SCH (19:10)
[2019-09-09] MEDS ORDERED: Gabapentin 300 MG CAPSULE PO SCH (21:00)
[2019-09-09] MEDS ORDERED: Nicotine 21 MG PATCH.TD24 TD SCH (21:00)
[2019-09-09] MEDS: hydrALAZINE 25 MG TABLET PO SCH (22:22)
[2019-09-09] MEDS: *HR* HYDROcodone/Acet 5/325 mg TABLET PO PRN (22:23)
[2019-09-10 05:53] LABS: Basophils % 0.2 %; Eosinophils # 0.1 K/mcL (0.0-0.6); Eosinophils % 1.4 %; Hematocrit 31.7 % (35.3-44.9); Hemoglobin 9.4 g/dL (11.5-15.4); Immature Granulocytes % 0.2 % (0-4); Lymphocytes # 1.1 K/mcL (0.6-4.6); Lymphocytes % 25.5 %; Mean Corpuscular HGB Conc 29.7 g/dL (31.6-35.5); Mean Corpuscular Volume 91.1 fL (83.0-100.0); Monocytes # 0.3 K/mcL (0.0-1.3); Monocytes % 7.3 %; Neutrophils # 2.9 K/mcL (1.6-8.9); Platelet Count 124 K/mcL (140-400); Red Blood Count 3.48 M/mcL (3.82-4.97); Red Cell Distribution Width 17.2 % (11.5-14.5); Segmented Neutrophils % 65.4 %; White Blood Count 4.4 K/mcL (4.3-11.1)
[2019-09-10 05:57] LABS: INR 1.2; Prothrombin Time 13.9 Seconds (9.4-12.1)
[2019-09-10 05:59] LABS: Activated Partial Thrombo Time 41.4 Seconds (26.0-36.0)
[2019-09-10 06:28] LABS: Calcium 9.2 mg/dL (8.6-10.3); Magnesium 2.2 mg/dL (1.6-2.6)
[2019-09-10] MEDS: Insulin LISPRO 300 UNITS/3 ML VIAL SQ SCH ×3 (08:53→16:45)
[2019-09-10] MEDS: *HR* HYDROcodone/Acet 5/325 mg TABLET PO PRN ×3 (08:54→23:08)
[2019-09-10] MEDS: Azithromycin 250 MG TABLET PO SCH (08:54)
[2019-09-10] MEDS: Nicotine 21 MG PATCH.TD24 TD SCH (08:54)
[2019-09-10] MEDS: Magnesium Oxide 400 MG TABLET PO SCH (08:54)
[2019-09-10] MEDS: Bumetanide 1 MG/4 ML VIAL IVP SCH ×2 (09:03→16:45)
[2019-09-10] MEDS: hydrALAZINE 25 MG TABLET PO SCH ×2 (09:04→21:41)
[2019-09-10] MEDS ORDERED: Insulin LISPRO 300 UNITS/3 ML VIAL SQ ONE (09:41)
[2019-09-10] MEDS ORDERED: *HR* Dextrose 50 % in Water (Vial) 50 ML VIAL IVP ONE (09:42)
[2019-09-10] MEDS: Albuterol 2.5 MG/3 ML NEBULIZER IH PRN (09:49)
[2019-09-10] MEDS ORDERED: *HR* Dextrose 50 % in Water (Syg) 50 ML SYRINGE IVP ONE (10:01)
[2019-09-10] MEDS: Tiotropium 18 MCG inhalation IH SCH (11:20)
[2019-09-10] MEDS ORDERED: Acetaminophen 325 MG TABLET PO PRN (14:22)
[2019-09-10 15:39] LABS: Calcium 9.3 mg/dL (8.6-10.3); Potassium 4.9 mEq/L (3.5-5.1)
[2019-09-10] MEDS: rOPINIRole 1 MG TABLET PO SCH (16:46)
[2019-09-10] MEDS: Insulin DETEMIR 100 UNIT/ML X5UNITS SQ SCH (21:35)
[2019-09-11] MEDS: Insulin LISPRO 300 UNITS/3 ML VIAL SQ SCH ×5 (00:26→22:23)
[2019-09-11] MEDS ORDERED: *HR* HYDROcodone/Acet 7.5/325 mg TABLET PO ONE (02:11)
[2019-09-11] MEDS ORDERED: Insulin Human Regular 5 UNIT in 0.9 % Sodium Chloride 10 ML IV ONE (02:35)
[2019-09-11 05:32] LABS: Calcium 8.8 mg/dL (8.6-10.3); Phosphorous 5.2 mg/dL (2.7-4.5); Potassium 4.7 mEq/L (3.5-5.1)
[2019-09-11] MEDS: Tiotropium 18 MCG inhalation IH SCH (07:58)
[2019-09-11] MEDS: hydrALAZINE 25 MG TABLET PO SCH ×2 (09:19→22:24)
[2019-09-11] MEDS: Magnesium Oxide 400 MG TABLET PO SCH (09:19)
[2019-09-11] MEDS: Azithromycin 250 MG TABLET PO SCH (09:19)
[2019-09-11] MEDS: Bumetanide 1 MG/4 ML VIAL IVP SCH ×2 (09:19→17:08)
[2019-09-11] MEDS: Nicotine 21 MG PATCH.TD24 TD SCH (09:21)
[2019-09-11] MEDS: *HR* HYDROcodone/Acet 5/325 mg TABLET PO PRN ×3 (09:21→22:24)
[2019-09-11] MEDS: rOPINIRole 1 MG TABLET PO SCH (17:08)
[2019-09-11] MEDS: Insulin DETEMIR 100 UNIT/ML X5UNITS SQ SCH (22:25)
[2019-09-12] MEDS: *HR* HYDROcodone/Acet 5/325 mg TABLET PO PRN ×3 (04:06→21:41)
[2019-09-12 05:18] LABS: Calcium 8.6 mg/dL (8.6-10.3); Magnesium 1.9 mg/dL (1.6-2.6); Phosphorous 4.9 mg/dL (2.7-4.5); Potassium 4.7 mEq/L (3.5-5.1)
[2019-09-12] MEDS: Bumetanide 1 MG/4 ML VIAL IVP SCH ×2 (09:30→16:36)
[2019-09-12] MEDS: Albumin 25% 25gram/100mL 25 GM/100 ML IV.SOLN IVC SCH ×2 (09:31→11:28)
[2019-09-12] MEDS: Insulin LISPRO 300 UNITS/3 ML VIAL SQ SCH ×4 (09:32→21:40)
[2019-09-12] MEDS: hydrALAZINE 25 MG TABLET PO SCH ×2 (09:32→21:42)
[2019-09-12] MEDS: Magnesium Oxide 400 MG TABLET PO SCH (09:32)
[2019-09-12] MEDS: Azithromycin 250 MG TABLET PO SCH (09:32)
[2019-09-12] MEDS: Nicotine 21 MG PATCH.TD24 TD SCH (09:33)
[2019-09-12] MEDS: Tiotropium 18 MCG inhalation IH SCH (09:50)
[2019-09-12] MEDS: Sennosides/Docusate Sodium TABLET PO SCH ×2 (14:56→21:42)
[2019-09-12] MEDS: rOPINIRole 1 MG TABLET PO SCH (16:36)
[2019-09-12] MEDS: Insulin DETEMIR 100 UNIT/ML X5UNITS SQ SCH (21:40)
[2019-09-13] MEDS: *HR* HYDROcodone/Acet 5/325 mg TABLET PO PRN ×3 (02:13→22:22)
[2019-09-13 06:53] LABS: Basophils % 0.3 %; Eosinophils # 0.1 K/mcL (0.0-0.6); Eosinophils % 1.3 %; Hematocrit 29.8 % (35.3-44.9); Hemoglobin 8.9 g/dL (11.5-15.4); Immature Granulocytes % 0.3 % (0-4); Lymphocytes # 0.9 K/mcL (0.6-4.6); Lymphocytes % 25.1 %; Mean Corpuscular HGB Conc 29.9 g/dL (31.6-35.5); Mean Corpuscular Volume 90.3 fL (83.0-100.0); Mean Platelet Volume 11.1 fL (9.4-12.4); Monocytes # 0.2 K/mcL (0.0-1.3); Monocytes % 5.9 %; Neutrophils # 2.5 K/mcL (1.6-8.9); Platelet Count 124 K/mcL (140-400); Segmented Neutrophils % 67.1 %; White Blood Count 3.8 K/mcL (4.3-11.1)
[2019-09-13 07:11] LABS: Calcium 8.8 mg/dL (8.6-10.3); Phosphorous 4.7 mg/dL (2.7-4.5); Potassium 4.8 mEq/L (3.5-5.1)
[2019-09-13] MEDS: Tiotropium 18 MCG inhalation IH SCH (07:32)
[2019-09-13] MEDS: Azithromycin 250 MG TABLET PO SCH (09:23)
[2019-09-13] MEDS: Sennosides/Docusate Sodium TABLET PO SCH ×2 (09:23→22:23)
[2019-09-13] MEDS: hydrALAZINE 25 MG TABLET PO SCH ×2 (09:24→22:24)
[2019-09-13] MEDS: Insulin DETEMIR 100 UNIT/ML X5UNITS SQ SCH ×2 (09:24→22:25)
[2019-09-13] MEDS: Nicotine 21 MG PATCH.TD24 TD SCH (09:24)
[2019-09-13] MEDS: Magnesium Oxide 400 MG TABLET PO SCH (09:24)
[2019-09-13] MEDS: Insulin LISPRO 300 UNITS/3 ML VIAL SQ SCH ×4 (09:24→22:24)
[2019-09-13] MEDS: Gabapentin 300 MG CAPSULE PO PRN (12:25)
[2019-09-13] MEDS: predniSONE 20 MG TABLET PO SCH (14:15)
[2019-09-13] MEDS: rOPINIRole 1 MG TABLET PO SCH (17:33)
[2019-09-14 05:47] LABS: Basophils % 0.2 %; Hematocrit 29.9 % (35.3-44.9); Immature Granulocytes % 0.7 % (0-4); Lymphocytes # 0.6 K/mcL (0.6-4.6); Lymphocytes % 12.3 %; Mean Corpuscular HGB Conc 30.1 g/dL (31.6-35.5); Mean Corpuscular Hemoglobin 27.4 pg (28.0-33.3); Mean Corpuscular Volume 90.9 fL (83.0-100.0); Mean Platelet Volume 10.7 fL (9.4-12.4); Monocytes # 0.1 K/mcL (0.0-1.3); Monocytes % 3.1 %; Neutrophils # 3.7 K/mcL (1.6-8.9); Platelet Count 129 K/mcL (140-400); Red Blood Count 3.29 M/mcL (3.82-4.97); Segmented Neutrophils % 83.7 %; White Blood Count 4.5 K/mcL (4.3-11.1)
[2019-09-14 06:11] LABS: Phosphorous 4.5 mg/dL (2.7-4.5); Potassium 5.1 mEq/L (3.5-5.1)
[2019-09-14] MEDS: Tiotropium 18 MCG inhalation IH SCH (07:30)
[2019-09-14] MEDS: Insulin LISPRO 300 UNITS/3 ML VIAL SQ SCH ×6 (08:30→21:29)
[2019-09-14] MEDS: Insulin DETEMIR 100 UNIT/ML X5UNITS SQ SCH ×2 (08:30→21:28)
[2019-09-14] MEDS: Magnesium Oxide 400 MG TABLET PO SCH (08:31)
[2019-09-14] MEDS: MetroNIDAZOLE 500 MG/100 ML 500 MG/100 ML BAG IVPB SCH ×2 (08:31→17:10)
[2019-09-14] MEDS: hydrALAZINE 25 MG TABLET PO SCH ×2 (08:31→21:28)
[2019-09-14] MEDS: *HR* HYDROcodone/Acet 5/325 mg TABLET PO PRN ×4 (08:31→21:36)
[2019-09-14] MEDS: Nicotine 21 MG PATCH.TD24 TD SCH (08:31)
[2019-09-14] MEDS: predniSONE 20 MG TABLET PO SCH (08:31)
[2019-09-14] MEDS: Sennosides/Docusate Sodium TABLET PO SCH ×2 (08:32→21:40)
[2019-09-14] MEDS: levoFLOXacin 750 MG/150 ML 750 MG/150 ML BAG IVPB SCH (10:10)
[2019-09-14 10:27] LABS: Bilirubin,Urine Negative (Negative); Blood,Urine Negative (Negative); Clarity,Urine Cloudy (Clear); Color,Urine Yellow (Yellow); Glucose,Urine (UA) Normal (Normal); Ketones,Urine Negative (Negative); Leukocyte Esterase,Urine Negative (Negative); Nitrite,Urine Negative (Negative); PH,Urine 5.5 pH Units (5.0-8.0); Protein,Urine 100 mg/dL (Neg-Trace); Specific Gravity,Urine 1.023 (1.010-1.025); Urobilinogen,Urine Normal (Normal)
[2019-09-14 10:32] LABS: Bacteria,Urine None Seen per hpf (None-Few); Hyaline Casts,Urine None Seen per lpf (None-Few); Squamous Epithelial Cell,Urine Many per lpf (None-Few); WBC,Urine 0-3 per hpf (0-3)
[2019-09-14] MEDS: rOPINIRole 1 MG TABLET PO SCH (17:11)
[2019-09-15] MEDS: MetroNIDAZOLE 500 MG/100 ML 500 MG/100 ML BAG IVPB SCH ×4 (00:18→23:54)
[2019-09-15 02:47] LABS: Calcium 9.1 mg/dL (8.6-10.3); Phosphorous 4.1 mg/dL (2.7-4.5); Potassium 5.1 mEq/L (3.5-5.1)
[2019-09-15] MEDS: Tiotropium 18 MCG inhalation IH SCH (07:47)
[2019-09-15] MEDS: Insulin LISPRO 300 UNITS/3 ML VIAL SQ SCH ×8 (09:19→22:58)
[2019-09-15] MEDS: Nicotine 21 MG PATCH.TD24 TD SCH (09:19)
[2019-09-15] MEDS: Sennosides/Docusate Sodium TABLET PO SCH ×2 (09:19→22:50)
[2019-09-15] MEDS: hydrALAZINE 25 MG TABLET PO SCH ×2 (12:24→22:51)
[2019-09-15] MEDS ORDERED: *HR* Midazolam HCl 2 MG/2 ML VIAL ONE (13:34)
[2019-09-15] MEDS ORDERED: *HR* FentaNYL (PF) 100 MCG/2 ML VIAL ONE (13:34)
[2019-09-15] MEDS ORDERED: Clindamycin 600 MG/50 ML 1,200 MG/100 ML IV.SOLN IVPB ONE (13:35)
[2019-09-15] MEDS ORDERED: 0.9 % Sodium Chloride 1,000 ML ONE (13:35)
[2019-09-15] MEDS: Insulin DETEMIR 100 UNIT/ML X5UNITS SQ SCH ×2 (15:07→22:59)
[2019-09-15] MEDS: Magnesium Oxide 400 MG TABLET PO SCH (16:05)
[2019-09-15] MEDS: predniSONE 20 MG TABLET PO SCH (16:05)
[2019-09-15] MEDS: rOPINIRole 1 MG TABLET PO SCH (16:06)
[2019-09-15] MEDS: *HR* HYDROcodone/Acet 5/325 mg TABLET PO PRN (16:28)
[2019-09-15] MEDS ORDERED: Clindamycin 900 MG/50 ML 900 MG/50 ML IV.SOLN IVPB SCH (18:00)
[2019-09-16] MEDS: *HR* HYDROcodone/Acet 5/325 mg TABLET PO PRN (06:12)
[2019-09-16] MEDS: Tiotropium 18 MCG inhalation IH SCH (07:45)
[2019-09-16] MEDS: predniSONE 20 MG TABLET PO SCH (08:12)
[2019-09-16] MEDS: hydrALAZINE 25 MG TABLET PO SCH ×2 (08:12→20:05)
[2019-09-16] MEDS: Magnesium Oxide 400 MG TABLET PO SCH (08:12)
[2019-09-16] MEDS: Nicotine 21 MG PATCH.TD24 TD SCH (08:13)
[2019-09-16] MEDS: Sennosides/Docusate Sodium TABLET PO SCH ×2 (08:13→20:05)
[2019-09-16] MEDS: MetroNIDAZOLE 500 MG/100 ML 500 MG/100 ML BAG IVPB SCH (08:14)
[2019-09-16] MEDS: Insulin LISPRO 300 UNITS/3 ML VIAL SQ SCH ×7 (08:32→21:45)
[2019-09-16] MEDS: Insulin DETEMIR 100 UNIT/ML X5UNITS SQ SCH ×2 (10:23→21:46)
[2019-09-16] MEDS: levoFLOXacin 750 MG TABLET PO SCH (10:24)
[2019-09-16] MEDS: metroNIDAZOLE 500 MG TABLET PO SCH ×2 (14:59→20:04)
[2019-09-16] MEDS: rOPINIRole 1 MG TABLET PO SCH (18:08)
[2019-09-16] MEDS: Gabapentin 300 MG CAPSULE PO PRN (20:05)
[2019-09-17 07:13] LABS: Calcium 9.2 mg/dL (8.6-10.3)
[2019-09-17] MEDS: Tiotropium 18 MCG inhalation IH SCH (07:39)
[2019-09-17] MEDS: Insulin LISPRO 300 UNITS/3 ML VIAL SQ SCH ×7 (09:46→21:53)
[2019-09-17] MEDS: Magnesium Oxide 400 MG TABLET PO SCH (09:50)
[2019-09-17] MEDS: metroNIDAZOLE 500 MG TABLET PO SCH ×3 (09:50→21:50)
[2019-09-17] MEDS: Sennosides/Docusate Sodium TABLET PO SCH ×2 (09:51→21:53)
[2019-09-17] MEDS: predniSONE 20 MG TABLET PO SCH (09:51)
[2019-09-17] MEDS: Nicotine 21 MG PATCH.TD24 TD SCH (09:52)
[2019-09-17] MEDS: hydrALAZINE 25 MG TABLET PO SCH ×2 (09:52→21:50)
[2019-09-17] MEDS: Insulin DETEMIR 100 UNIT/ML X5UNITS SQ SCH ×2 (09:55→21:53)
[2019-09-17] MEDS: Albuterol 2.5 MG/3 ML NEBULIZER IH PRN ×2 (11:36→22:02)
[2019-09-17] MEDS: levoFLOXacin 750 MG/150 ML 750 MG/150 ML BAG IVPB SCH (12:50)
[2019-09-17] MEDS ORDERED: Bumetanide 1 MG/4 ML VIAL IVP ONE (15:41)
[2019-09-17] MEDS: rOPINIRole 1 MG TABLET PO SCH (15:49)
[2019-09-17] MEDS: *HR* HYDROcodone/Acet 5/325 mg TABLET PO PRN (21:50)
[2019-09-18] MEDS: Gabapentin 300 MG CAPSULE PO PRN (05:10)
[2019-09-18] MEDS: Albuterol 2.5 MG/3 ML NEBULIZER IH PRN (06:09)
[2019-09-18] MEDS: Tiotropium 18 MCG inhalation IH SCH (07:31)
[2019-09-18] MEDS: Insulin LISPRO 300 UNITS/3 ML VIAL SQ SCH ×7 (10:17→21:06)
[2019-09-18] MEDS: hydrALAZINE 25 MG TABLET PO SCH ×2 (10:18→20:58)
[2019-09-18] MEDS: metroNIDAZOLE 500 MG TABLET PO SCH ×3 (10:18→20:58)
[2019-09-18] MEDS: levoFLOXacin 750 MG TABLET PO SCH (10:18)
[2019-09-18] MEDS: Sennosides/Docusate Sodium TABLET PO SCH ×2 (10:18→20:59)
[2019-09-18] MEDS: Magnesium Oxide 400 MG TABLET PO SCH (10:18)
[2019-09-18] MEDS: Nicotine 21 MG PATCH.TD24 TD SCH (10:19)
[2019-09-18 11:37] LABS: Hematocrit 29.5 % (35.3-44.9); Hemoglobin 8.6 g/dL (11.5-15.4); Mean Corpuscular HGB Conc 29.2 g/dL (31.6-35.5); Mean Corpuscular Hemoglobin 26.6 pg (28.0-33.3); Mean Corpuscular Volume 91.3 fL (83.0-100.0); Mean Platelet Volume 10.2 fL (9.4-12.4); Platelet Count 117 K/mcL (140-400); Red Blood Count 3.23 M/mcL (3.82-4.97); Red Cell Distribution Width 17.3 % (11.5-14.5); White Blood Count 5.8 K/mcL (4.3-11.1)
[2019-09-18 11:44] LABS: Calcium 8.8 mg/dL (8.6-10.3); Potassium 5.2 mEq/L (3.5-5.1)
[2019-09-18] MEDS: Insulin DETEMIR 100 UNIT/ML X5UNITS SQ SCH ×2 (12:24→20:57)
[2019-09-18] MEDS ORDERED: E-Z-PAQUE (BARIUM SULF) SUSP 1 BOTTLE PO ONE (13:38)
[2019-09-18] MEDS ORDERED: E-Z-HD (BARIUM SULF) SUSPENSION PO ONE (13:38)
[2019-09-18] MEDS ORDERED: Bumetanide 1 MG/4 ML VIAL IVP ONE (15:16)
[2019-09-18] MEDS: rOPINIRole 1 MG TABLET PO SCH (16:55)
[2019-09-18] MEDS: Bumetanide 1 MG/4 ML VIAL IVP SCH (16:56)
[2019-09-19] MEDS: Gabapentin 300 MG CAPSULE PO PRN (03:23)
[2019-09-19 05:58] LABS: Hematocrit 31.8 % (35.3-44.9); Hemoglobin 9.6 g/dL (11.5-15.4); Mean Corpuscular HGB Conc 30.2 g/dL (31.6-35.5); Mean Corpuscular Hemoglobin 26.7 pg (28.0-33.3); Mean Corpuscular Volume 88.6 fL (83.0-100.0); Mean Platelet Volume 10.5 fL (9.4-12.4); Platelet Count 134 K/mcL (140-400); Red Blood Count 3.59 M/mcL (3.82-4.97); Red Cell Distribution Width 17.3 % (11.5-14.5); White Blood Count 6.3 K/mcL (4.3-11.1)
[2019-09-19 06:22] LABS: Albumin 3.6 g/dL (3.5-5.7); Albumin/Globulin Ratio 1.4 (1.1-2.2); Bilirubin,Total 0.5 mg/dL (0.3-1.0); Calcium 9.4 mg/dL (8.6-10.3); Globulin 2.5 g/dL (2.4-3.5); Potassium 5.5 mEq/L (3.5-5.1); Total Protein 6.1 g/dL (6.4-8.9)
[2019-09-19] MEDS: Tiotropium 18 MCG inhalation IH SCH (07:44)
[2019-09-19] MEDS: Insulin LISPRO 300 UNITS/3 ML VIAL SQ SCH ×7 (07:57→20:35)
[2019-09-19] MEDS: Bumetanide 1 MG/4 ML VIAL IVP SCH (07:57)
[2019-09-19] MEDS: Magnesium Oxide 400 MG TABLET PO SCH (07:58)
[2019-09-19] MEDS: metroNIDAZOLE 500 MG TABLET PO SCH (07:58)
[2019-09-19] MEDS: hydrALAZINE 25 MG TABLET PO SCH ×2 (07:58→20:35)
[2019-09-19] MEDS: Sennosides/Docusate Sodium TABLET PO SCH ×2 (07:59→20:35)
[2019-09-19] MEDS: Nicotine 21 MG PATCH.TD24 TD SCH (07:59)
[2019-09-19] MEDS: Insulin DETEMIR 100 UNIT/ML X5UNITS SQ SCH ×2 (08:15→20:35)
[2019-09-19] MEDS: Bumetanide 1 MG TABLET PO SCH (17:18)
[2019-09-19] MEDS: rOPINIRole 1 MG TABLET PO SCH (17:18)
[2019-09-19] MEDS: *HR* Heparin 5,000 UNIT/ML VIAL SQ SCH (18:41)
[2019-09-19] MEDS: *HR* OxyCODONE Immed Rel 5 MG TABLET PO PRN (22:23)
[2019-09-20] MEDS: *HR* Heparin 5,000 UNIT/ML VIAL SQ SCH ×3 (04:42→17:17)
[2019-09-20] MEDS: Gabapentin 300 MG CAPSULE PO PRN (04:58)
[2019-09-20] MEDS: Insulin DETEMIR 100 UNIT/ML X5UNITS SQ SCH ×2 (08:24→21:49)
[2019-09-20] MEDS: Insulin LISPRO 300 UNITS/3 ML VIAL SQ SCH ×7 (08:24→21:49)
[2019-09-20] MEDS: Nicotine 21 MG PATCH.TD24 TD SCH (08:25)
[2019-09-20] MEDS: Magnesium Oxide 400 MG TABLET PO SCH (08:25)
[2019-09-20] MEDS: Sennosides/Docusate Sodium TABLET PO SCH ×2 (08:25→21:50)
[2019-09-20] MEDS: Bumetanide 1 MG TABLET PO SCH ×2 (08:26→17:18)
[2019-09-20] MEDS: hydrALAZINE 25 MG TABLET PO SCH ×2 (08:26→21:48)
[2019-09-20] MEDS: *HR* OxyCODONE Immed Rel 5 MG TABLET PO PRN ×2 (08:28→21:49)
[2019-09-20] MEDS: Tiotropium 18 MCG inhalation IH SCH (09:52)
[2019-09-20 10:59] LABS: Hematocrit 31.1 % (35.3-44.9); Hemoglobin 9.2 g/dL (11.5-15.4); Mean Corpuscular HGB Conc 29.6 g/dL (31.6-35.5); Mean Corpuscular Hemoglobin 26.9 pg (28.0-33.3); Mean Corpuscular Volume 90.9 fL (83.0-100.0); Mean Platelet Volume 9.6 fL (9.4-12.4); Platelet Count 103 K/mcL (140-400); Red Blood Count 3.42 M/mcL (3.82-4.97); Red Cell Distribution Width 17.3 % (11.5-14.5); White Blood Count 5.1 K/mcL (4.3-11.1)
[2019-09-20 11:18] LABS: Calcium 9.3 mg/dL (8.6-10.3); Potassium 5.5 mEq/L (3.5-5.1)
[2019-09-20] MEDS: rOPINIRole 1 MG TABLET PO SCH (17:18)
[2019-09-21 05:02] LABS: Hematocrit 32.3 % (35.3-44.9); Hemoglobin 9.6 g/dL (11.5-15.4); Mean Corpuscular HGB Conc 29.7 g/dL (31.6-35.5); Mean Corpuscular Hemoglobin 27.3 pg (28.0-33.3); Mean Corpuscular Volume 91.8 fL (83.0-100.0); Mean Platelet Volume 10.5 fL (9.4-12.4); Platelet Count 112 K/mcL (140-400); Red Blood Count 3.52 M/mcL (3.82-4.97); Red Cell Distribution Width 17.3 % (11.5-14.5); White Blood Count 4.5 K/mcL (4.3-11.1)
[2019-09-21 05:26] LABS: Calcium 9.3 mg/dL (8.6-10.3); Potassium 4.5 mEq/L (3.5-5.1)
[2019-09-21] MEDS: *HR* Heparin 5,000 UNIT/ML VIAL SQ SCH (05:34)
[2019-09-21] MEDS: Tiotropium 18 MCG inhalation IH SCH ×2 (07:58→07:59)
[2019-09-21 08:59] VITALS: BP 147/61
[2019-09-21] MEDS: Magnesium Oxide 400 MG TABLET PO SCH (09:11)
[2019-09-21] MEDS: hydrALAZINE 25 MG TABLET PO SCH (09:11)
[2019-09-21] MEDS: Nicotine 21 MG PATCH.TD24 TD SCH (09:12)
[2019-09-21] MEDS: Bumetanide 1 MG TABLET PO SCH (09:12)
[2019-09-21] MEDS: Insulin LISPRO 300 UNITS/3 ML VIAL SQ SCH ×2 (09:12→09:16)
[2019-09-21] MEDS: Sennosides/Docusate Sodium TABLET PO SCH (09:18)
[2019-09-21] MEDS: Insulin DETEMIR 100 UNIT/ML X5UNITS SQ SCH (09:29)
== END 2019-09-21 11:13 | DRG 242 ==
LOC: 2ANU 11:00 → EMEROOARM 11:00 → 2ANU 16:37 → SUATTDRO 09-10 14:55
PROVIDERS: ADMIT Internal Medicine; ATTEND Internal Medicine